=== PATIENT | female | born 1995 | race Caucasian/White ===

== ENCOUNTER 2016-12-22 07:28 | Emergency (ER) | payer OTHER ==
[~2016-12-22] VITALS: Ht 165.1 cm; Wt 81.7 kg
[~2016-12-22 07:28] MED LIST: ACETAMINOPHEN325 M1 PO; CEPHALEXIN500 MG PO; KEFLEX500 MG PO; MIRENA1 EACH; NORCO 5-325 TA1 EACH PO; [UNRECOGNIZED DRUG - OTHER]
--- OUTSIDE RECORDS SUMMARY | 2016-12-22 07:34 | XMS ---
Demographics + + + | Address | [address] | | | [place] [address] | + + + | Preferred Language | Unknown | + + + | Marital Status | Unknown | + + + | Mormon Affiliation | Unknown | + + + | Race | Unknown | + + + | Ethnic Group | Unknown | + + + Author + + + | Author | [facility] | + + + | Organization | [facility] | + + + | Address | [address] | | | [place] [address] | + + + | Phone | | + + + Care Team Providers + + + + | Care Stacking Machine Operator Name | Role | Phone | + + + + Unavailable | Unavailable | + + + + PROBLEMS +---------+ + + +--------+ + + | Type | Condition | ICD9-CM | [id number] | Onset | Condition | SNOMED | | | | Code | Code | Dates | Status | Code | +---------+ + + +--------+ + + | Problem | Anxiety | F41.9 | | | Active | 802116532 | | | disorder | | | | | | +---------+ + + +--------+ + + | Problem | Depression | | F41.8 | | Active | [id number] | | | with | | | | | | | | anxiety | | | | | | +---------+ + + +--------+ + + ALLERGIES Unknown Allergies SOCIAL HISTORY No smoking Hx information available PLAN OF CARE VITAL SIGNS MEDICATIONS Unknown Medications RESULTS No Results PROCEDURES No Known procedures IMMUNIZATIONS No Known Immunizations"
--- OUTSIDE RECORDS SUMMARY | 2016-12-22 07:34 | XMS ---
Demographics + + + | Address | [address] | | | [place] [address] | + + + | Preferred Language | Unknown | + + + | Marital Status | Unknown | + + + | Yarsani Affiliation | Unknown | + + + | Race | Unknown | + + + | Ethnic Group | Unknown | + + + Author + + + | Author | [facility] | + + + | Organization | [facility] | + + + | Address | [address] | | | [place] [address] | + + + | Phone | | + + + Care Team Providers + + + + | Care Seamstress Fitter Name | Role | Phone | + + + + Unavailable | Unavailable | + + + + PROBLEMS + + + + + + + + | Type | Condition | ICD9-CM | [id number] | Onset | Condition | SNOMED | | | | Code | Code | Dates | Status | Code | + + + + + + + + | Problem | Anxiety | F41.9 | | | Active | [id number] | | | disorder | | | | | | + + + + + + + + | Problem | Depression | | F41.8 | | Active | [id number] | | | with | | | | | | | | anxiety | | | | | | + + + + + + + + | Assessment | Bilateral | H66.93 | | 18 Apr, | Active | [id number] | | | otitis | | | 2016 | | | | | media | | | | | | + + + + + + + + | Assessment | Pharyngiti | | J02.9 | 18 Apr, | Active | [id number] | | | s | | | 2016 | | | + + + + + + + + ALLERGIES + + + + +--------+ | Substance | Reaction | Event Type | Date | Status | + + + + +--------+ | Bees | Unknown | Non Drug | 18 Aug, 2016 | Active | | | | Allergy | | | + + + + +--------+ SOCIAL HISTORY No smoking Hx information available PLAN OF CARE VITAL SIGNS + + + + | Height | 65 in | 2016-08-23 | + + + + | Weight | 212.9 lbs | 2016-08-23 | + + + + | BMI | 35.42 kg/m2 | 2016-08-23 | + + + + | Temperature | 98.0 degrees Fahrenheit | 2016-08-23 | + + + + | Heart Rate | 78 /min | 2016-08-23 | + + + + | Blood pressure systolic | 128 mm Hg | 2016-08-23 | + + + + | Blood pressure diastolic | 69 mm Hg | 2016-08-23 | + + + + MEDICATIONS + + + + + + + +--------+ | Medicati | Instruct | Dosage | Frequenc | Start | End Date | Duration | Status | | on | ions | | y | Date | | | | + + + + + + + +--------+ | Ibuprofe | Orally | 1 tablet | 8h | 18 Apr, | 28 Aug, | 10 | Active | | n 800 MG | Three | | | 2016 | 2016 | day(s) | | | | times a | | | | | | | | | day | | | | | | | + + + + + + + +--------+ | Amoxicil | Orally | 1 tablet | 12h | 18 Apr, | 28 Apr, | 10 | Active | | vito-Pot | every 12 | | | 2016 | 2016 | day(s) | | | Clavulan | hrs | | | | | | | | ate | | | | | | | | | 875-125 | | | | | | | | | MG | | | | | | | | + + + + + + + +--------+ RESULTS + +--------+------+ + | Name | Result | Date | Reference Range | + +--------+------+ + | Strep Gp A Rapid | | | | | (IH) | | | | + +--------+------+ + PROCEDURES + + + + + | Procedure | Date Ordered | Related Diagnosis | Body Site | + + + + + | Est Level III | August 23, 2016 | | | | Intermediate | | | | + + + + + | STREP A ASSAY | August 23, 2016 | | | | W/OPTIC | | | | + + + + + IMMUNIZATIONS No Known Immunizations"
--- OUTSIDE RECORDS SUMMARY | 2016-12-22 07:34 | XMS ---
Demographics + + + | Address | [address] | | | [place] [address] | + + + | Preferred Language | Unknown | + + + | Marital Status | Unknown | + + + | Jain Affiliation | Unknown | + + + | Race | Unknown | + + + | Ethnic Group | Unknown | + + + Author + + + | Author | [facility] | + + + | Organization | [facility] | + + + | Address | [address] | | | [place] [address] | + + + | Phone | | + + + Care Team Providers + + + + | Care Director Counseling Bureau Name | Role | Phone | + + + + Unavailable | Unavailable | + + + + PROBLEMS +---------+ + + +--------+ + + | Type | Condition | ICD9-CM | [id number] | Onset | Condition | SNOMED | | | | Code | Code | Dates | Status | Code | +---------+ + + +--------+ + + | Problem | Anxiety | F41.9 | | | Active | [id number] | | | disorder | | | | | | +---------+ + + +--------+ + + | Problem | Depression | | F41.8 | | Active | [id number] | | | with | | | | | | | | anxiety | | | | | | +---------+ + + +--------+ + + ALLERGIES Unknown Allergies SOCIAL HISTORY No smoking Hx information available PLAN OF CARE VITAL SIGNS MEDICATIONS Unknown Medications RESULTS No Results PROCEDURES No Known procedures IMMUNIZATIONS No Known Immunizations"
[2016-12-22] MEDS ORDERED: ZOFRAN ODT4 MG PO (10:28)
[2016-12-22] MEDS ORDERED: PERCOCET 5-3251 EACH PO (10:28)
[2016-12-22] MEDS ORDERED: PRILOSEC OTC20 MG PO (10:28)
== END 2016-12-22 10:41 | disposition home or self-care (01) ==
LOC: ED 07:28
DX: R10.13 Epigastric pain (principal); F17.200 Nicotine dependence, unspecified, uncomplicated
CPT/HCPCS: 76705; 80053; 81001; 83690; 84703; 85025; 96374; 96375; 99284; J1170; J2405

== ENCOUNTER 2021-08-06 11:05 | Emergency (ER) | payer OTHER ==
[~2021-08-06] VITALS: Ht 167.6 cm; Wt 99.8 kg
[~2021-08-06 11:05] MED LIST changes: +HYDROCODONE CO120 ML PO; +PERCOCET 5-3251 EACH PO; +PRILOSEC OTC20 MG PO; +ZOFRAN ODT4 MG PO
[2021-08-06] MEDS ORDERED: HYDROCODON-ACE1 EA11 PO (17:31)
== END 2021-08-06 17:54 | disposition home or self-care (01) ==
LOC: ED 11:05
DX: R10.2 Pelvic and perineal pain (principal); F17.200 Nicotine dependence, unspecified, uncomplicated; Z91.030 Bee allergy status
CPT/HCPCS: 36415; 76830; 76856; 81001; 84703; 85025; 96374; 96375; 96376; 99284-25; J1170; J1885; J7040

== ENCOUNTER 2024-03-03 05:41 | Emergency (ER) | payer OTHER ==
[~2024-03-03] VITALS: Ht 167.6 cm; Wt 87.3 kg
[~2024-03-03 05:41] MED LIST changes: +HYDROCODON-ACE1 EA11 PO
[2024-03-03 06:32] LABS: BASOPHILS 0.7 % (0-2); BILIRUBIN, URINE NEGATIVE (negative); BLOOD/HGB, URINE LARGE (Negative); HEMATOCRIT 43.6 % (35.0-50.0); HEMOGLOBIN 14.7 g/dL (12.0-18.0); KETONE, URINE NEGATIVE (Negative); LEUK ESTERASE, URINE NEGATIVE (negative); LYMPHOCYTES 20.2 % (24-44); MCH 30.5 (27-36); MCHC 33.6 g/dl (30-36); MCV 90.8 fl (81-99); NEUTROPHILS 71.1 % (39-80); NITRITE, URINE NEGATIVE (negative); PLATELET COUNT 220 K/uL (140-440); RBC 4.81 M/ul (4.3-5.7)
[2024-03-03 06:43] LABS: PARTIAL THROMBOPLASTIN TIME 25.6 Sec (22.9-41.3)
[2024-03-03 06:44] LABS: CRYSTALS, URINE NONE SEEN (0-1+); EPITHELIAL CELLS, URINE SQUAMOUS 1+ /lpf (0-1+); INR 0.97 (0.80-1.30); PROTIME 12.2 Sec (11.2-14.2); RED BLOOD CELLS, URINE >50 /hpf (0-5); WHITE BLOOD CELLS, URINE 0-1 /HPF (0-5)
[2024-03-03 06:45] LABS: BACTERIA, URINE RARE /hpf (negative); CASTS, URINE NONE SEEN \\lpf; COLLECTION TYPE, URINE CLEAN CATCH; REFLEX CULTURE, URINE No (No)
[2024-03-03 06:47] LABS: ALBUMIN 3.7 g/dL (3.4-5.0); ALBUMIN/GLOBULIN RATIO 1.23 (1.1-2.4); ANION GAP 12.7 (7-21); BILIRUBIN, TOTAL 0.6 ng/dL (0.2-1.0); BUN/CREATININE RATIO 14.81 (6.0-28.6); CREATININE, SERUM 0.54 mg/dL (0.55-1.02); MAGNESIUM 1.9 mg/dL (1.8-2.4); POTASSIUM 3.7 mmol/L (3.5-5.1); PROTEIN, TOTAL 6.7 g/dL (6.4-8.2)
[2024-03-03 06:53] LABS: ABO O; RH POSITIVE
[2024-03-03 08:03] VITALS: BP 114/72
== END 2024-03-03 08:03 | disposition home or self-care (01) ==
LOC: ED 05:41
PROVIDERS: Internal Medicine
DX: O20.9 Hemorrhage in early pregnancy, unspecified (principal); O99.331 Smoking (tobacco) complicating pregnancy, first trimester; F17.200 Nicotine dependence, unspecified, uncomplicated; Z3A.01 Less than 8 weeks gestation of pregnancy; Z91.030 Bee allergy status
CPT/HCPCS: 36415; 76801; 80053; 81001; 83735; 84702; 85025; 85610; 85730; 86900; 86901; 99284-25

== ENCOUNTER 2024-09-22 09:11 | Inpatient (IN) | payer OTHER ==
[2024-09-22] MEDS ORDERED: LOPERAMIDE HCL 2 MG CAP PO ONE (09:45)
[2024-09-22 10:09] LABS: HEMATOCRIT 38.8 % (35.0-50.0); HEMOGLOBIN 13.6 g/dL (12.0-18.0); MCH 30.7 (27-36); MCHC 35.1 g/dl (30-36); MCV 87.6 fl (81-99); RBC 4.43 M/ul (4.3-5.7)
[2024-09-22 10:21] LABS: CREATININE, SERUM 0.69 mg/dL (0.55-1.02)
[2024-09-22 10:27] LABS: CREATININE, RANDOM URINE 249.69 mg/dL (NOT ESTABLISHED); PROTEIN/CREATININE RATIO 0.16 mg/mg (0.010-0.107)
[2024-09-22] MEDS ORDERED: TERBUTALINE SULFATE 1 MG/ML AMP SUB-Q ONE (10:45)
[2024-09-22] MEDS ORDERED: LACTATED RINGER'S 1,000 ML IV SCH ×4 (10:45→13:45)
[2024-09-22] MEDS ORDERED: MAGNESIUM SULFATE 2 GM/50 ML BAG IV SCH (11:15)
[2024-09-22] MEDS ORDERED: CALCIUM GLUCONATE 1,000 MG/10 ML VIAL IV PRN ×2 (11:15→13:45)
[2024-09-22] MEDS ORDERED: MAGNESIUM SULFATE 500 ML IV SCH ×2 (11:15→13:45)
[2024-09-22 11:24] LABS: ALBUMIN 2.8 g/dL (3.4-5.0); ALBUMIN/GLOBULIN RATIO 0.88 (1.1-2.4); ANION GAP 14.8 (7-21); BILIRUBIN, TOTAL 0.6 mg/dL (0.2-1.0); BUN/CREATININE RATIO 17.39 (6.0-28.6); CALCIUM 8.4 mg/dL (8.5-10.1); CREATININE, SERUM 0.69 mg/dL (0.55-1.02); POTASSIUM 3.8 mmol/L (3.5-5.1)
[2024-09-22] MEDS ORDERED: CEFAZOLIN SODIUM 2 GM/20 ML SYR IV SCH (11:38)
[2024-09-22] MEDS ORDERED: ondansetron HCL 4 MG/2 ML VIAL ONE (11:40)
[2024-09-22] MEDS ORDERED: MORPHINE SULFATE 1 MG/ML VIAL ONE (11:40)
[2024-09-22] MEDS ORDERED: fentaNYL citrate 100 MCG/2 ML VIAL ONE (11:40)
[2024-09-22] MEDS ORDERED: OXYTOCIN 10 UNITS/ML VIAL ONE ×2 (11:40→13:23)
[2024-09-22] MEDS ORDERED: DEXAMETHASONE SOD PHOS 4 MG/ML VIAL ONE (11:40)
[2024-09-22] MEDS ORDERED: BUPIVACAINE 0.75% IN DEXTROSE 2 ML AMP ONE (11:40)
[2024-09-22] MEDS ORDERED: LIDOCAINE HCL 2% 5 ML SDV ONE (11:40)
[2024-09-22] MEDS ORDERED: hydrALAZINE HCL 20 MG/ML VIAL IV PRN (11:45)
[2024-09-22] MEDS ORDERED: LABETALOL HCL 100 MG/20 ML MDV IV PRN ×3 (11:45)
[2024-09-22] MEDS ORDERED: SOD+POT BICARB/CITRIC ACID 2 EA TABLET.EFF PO ONE (11:45)
[2024-09-22 11:58] LABS: AMPHETAMINES, URINE NEGATIVE (NEGATIVE); BARBITURATES, URINE NEGATIVE (NEGATIVE); BENZODIAZEPINE, URINE NEGATIVE (NEGATIVE); BUPRENORPHINE, URINE NEGATIVE (NEGATIVE); CANNABINOID, URINE NEGATIVE (NEGATIVE); COCAINE, URINE NEGATIVE (NEGATIVE); ECSTASY, URINE NEGATIVE (NEGATIVE); FENTANYL, URINE NEGATIVE (NEGATIVE); METHADONE, URINE NEGATIVE (NEGATIVE); OPIATES, URINE NEGATIVE (NEGATIVE); OXYCODONE, URINE NEGATIVE (NEGATIVE); PHENCYCLIDINE, URINE NEGATIVE (NEGATIVE)
[2024-09-22] MEDS ORDERED: PHENYLEPHRINE HCL 10 MG/ML VIAL ONE (12:15)
[2024-09-22 12:19] VITALS: BP 147/84
[2024-09-22] MEDS ORDERED: SODIUM CHLORIDE 0.9% 20 ML IV ONE (12:39)
[2024-09-22] MEDS ORDERED: Ropivacaine HCl 0.5% 30 ML VIAL ONE (12:39)
[2024-09-22] MEDS ORDERED: ACETAMINOPHEN 1,000 MG/100 ML VIAL ONE (12:44)
[2024-09-22] MEDS ORDERED: NALOXONE HCL 0.4 MG SYR IV PRN (13:00)
[2024-09-22] MEDS ORDERED: diphenhydrAMINE HCL 50 MG/ML VIAL IV PRN (13:00)
[2024-09-22] MEDS ORDERED: ondansetron HCL 4 MG/2 ML VIAL IV PRN ×2 (13:00→13:15)
[2024-09-22] MEDS ORDERED: HYDROmorphone HCL 1 MG/ML SYR IV PRN (13:00)
[2024-09-22] MEDS ORDERED: PROCHLORPERAZINE EDISYLATE 10 MG/2 ML VIAL IV PRN ×2 (13:00→13:15)
[2024-09-22] MEDS ORDERED: METOCLOPRAMIDE HCL 10 MG/2 ML SDV IV PRN (13:15)
[2024-09-22] MEDS ORDERED: PROMETHAZINE HCL 25 MG SUPP PR PRN (13:15)
[2024-09-22] MEDS ORDERED: OXYCODONE HCL 5 MG TAB PO PRN (13:15)
[2024-09-22] MEDS ORDERED: OXYTOCIN/0.9 % SODIUM CHLORIDE 500 ML IV SCH (13:15)
[2024-09-22] MEDS ORDERED: bisacodyL 10 MG SUPP PR PRN (13:15)
[2024-09-22] MEDS ORDERED: HYDROCODONE/ACETA 5/325 TAB PO PRN (13:15)
[2024-09-22] MEDS ORDERED: PROMETHAZINE HCL 25 MG TAB PO PRN (13:15)
[2024-09-22] MEDS ORDERED: SENNOSIDES/DOCUSATE 1 EA TAB PO SCH (13:18)
[2024-09-22] MEDS ORDERED: miSOPROStoL 200 MCG TAB PR ONE (13:45)
[2024-09-22 13:48] VITALS: BP 117/73
[2024-09-22] MEDS ORDERED: ACETAMINOPHEN 500 MG TAB PO SCH (14:00)
--- NOTE | 2024-09-22 14:08 | NUR ---
09/22/24 1408 Jackie Chung 1318-PT ARRIES TO ROOM 104 ON RA. RESP EVEN AND UNLABORED. DENIES PAIN AND NAUSEA. IV LEFT ARM, INFUSING LR WITH PIT, SITE WNL. 1325-PT AWAKE. RESP EVEN AND UNLABORED. PT HOLDING BABY. FAMILY IN ROOM. 1335-PT HOLDING BABY. RESP EVEN AND UNLABOED. DENIES PAIN AND NAUSEA. HOB ELEVATED. 1344-PT HOLDING BABY. RESP EVEN AND UNLABORED. PT TAKING SIPS OF WATER. HOB ELEVATED. DENIES PAIN AND NAUSEA. 1348-LAST FUNDAL CHECK DONE WITH [facility] RN. 1354-PT HOLDING BABY. REPOERT GIVEN TO [facility] RN. NO OTHER NEEDS AT THIS TIME.
[2024-09-22] MEDS ORDERED: SIMETHICONE 80 MG CHEW PO SCH (16:00)
[2024-09-23] MEDS ORDERED: IBUPROFEN 600 MG TAB PO SCH (02:00)
[2024-09-23] MEDS ORDERED: LACTATED RINGER'S 1,000 ML IV SCH (05:00)
[2024-09-23 05:55] LABS: BASOPHILS 0.1 % (0-2); EOSINOPHILS 0.1 % (0-6); HEMATOCRIT 37.2 % (35.0-50.0); HEMOGLOBIN 12.9 g/dL (12.0-18.0); LYMPHOCYTES 7.5 % (24-44); MCH 30.5 (27-36); MCHC 34.6 g/dl (30-36); MCV 88.1 fl (81-99); NEUTROPHILS 86.3 % (39-80); PLATELET COUNT 104 K/uL (140-440); RBC 4.23 M/ul (4.3-5.7); RDW 13.1 (10.5-15.0)
[2024-09-23 06:10] LABS: ALBUMIN 2.5 g/dL (3.4-5.0); ALBUMIN/GLOBULIN RATIO 0.76 (1.1-2.4); ANION GAP 11.1 (7-21); BILIRUBIN, TOTAL 0.3 mg/dL (0.2-1.0); BUN/CREATININE RATIO 11.53 (6.0-28.6); CALCIUM 7.5 mg/dL (8.5-10.1); CREATININE, SERUM 0.78 mg/dL (0.55-1.02); POTASSIUM 4.1 mmol/L (3.5-5.1); PROTEIN, TOTAL 5.8 g/dL (6.4-8.2)
--- NOTE | 2024-09-23 08:23 | OR ---
[address] [address] Signed DATE OF OPERATION: 09/22/2024 SURGEON: Marcellus Stark MD PREOPERATIVE DIAGNOSES: 1. Intrauterine at 36 and 2/7th weeks. 2. Preeclampsia with severe features. 3. Remote from delivery. POSTOPERATIVE DIAGNOSES: 1. Intrauterine at 36 and 2/7th weeks. 2. Preeclampsia with severe features. 3. Remote from delivery. PROCEDURE: Primary low transverse section. FINDINGS: Vigorous male in vertex presentation. Apgars of 8 and 9, weight of 5 pounds 10 ounces, clear amniotic fluid, normal uterus, tubes, and ovaries. ANESTHESIA: Spinal. CORK MOLDER: None. QBL: 623 mL. IV FLUIDS: 700 mL of crystalloid. URINE OUTPUT: 400 mL of clear urine. DRAINS: Jolley to gravity. SPECIMENS: Electronically Signed By: MARCELLUS STARK MD 09/23/24 0823 PATIENT NAME: REJI OCONNOR OPERATIVE REPORT DATE OF : 89 REPORT #: [id number] PHYSICIAN: MARCELLUS STARK MD PCP: NO PRIMARY CARE PHYSICIAN REPORT IS CONFIDENTIAL AND NOT TO BE RELEASED WITHOUT AUTHORIZATION [address] [address] Signed None. COUNTS: Correct x2. COMPLICATIONS: None apparent. TECHNIQUE IN DETAIL: With informed consent, the patient was taken to the operating room where a spinal anesthetic was placed. She was prepped and draped in sterile fashion and time out was performed per protocol. Lower extremities were placed in SCD pneumatic compression devices. She was given 2 g of Ancef per protocol before the start of the procedure as well. Under adequate spinal analgesia, an approximately 7-inch Pfannenstiel skin incision was made and sharp dissection was carried down to the layer of the rectus fascia, which was nicked in the midline. This jeremiah in the fascia was enlarged bilaterally using sharp dissection. The rectus muscles were then taken down from the fascia using a combination of sharp and blunt dissection, though superiorly and inferiorly. The rectus muscles were in the midline at the most superior aspect and the separation was carried out inferiorly using a combination of blunt and sharp dissection. The peritoneum was entered sharply after grasping with hemostats and elevating. Careful attention was paid to lateral structures below. Once the peritoneum was reached, it was enlarged using a combination of sharp and blunt dissection. A bladder blade was then placed. A low transverse uterine incision was made using a scalpel. The remaining thin layer of the endometrium was punctured with the surgeon's finger and the uterine incision was enlarged with blunt dissection in an superior to inferior direction. The surgeon's hand was then placed into the lower uterine segment. head was elevated and delivered with fundal pressure. There was no nuchal cord. The shoulders delivered easily with fundal pressure. We delivered the baby. The cord was clamped after approximately 10 seconds and cut. The baby was handed to the transition team. The placenta delivered intact with a 3-vessel cord using gentle traction and fundal massage. Good uterine tone was achieved with intravenous oxytocin and fundal massage. The uterus was gently externalized and uterine cavity was curetted with laparotomy sponges. Uterine incision was then closed using an 0 Monocryl in a running locked fashion. A second imbricating layer was also placed with 0 Monocryl in a running fashion. The hysterotomy site was noted to be hemostatic. Posterior cul-de-sac was then cleared of all blood and clots. The adnexa were examined with the above-mentioned findings. The hysterectomy site was again inspected and noted to be hemostatic. The Electronically Signed By: MARCELLUS STARK MD 09/23/24 0823 PATIENT NAME: REJI OCONNOR OPERATIVE REPORT DATE OF : [birth year] REPORT #: [id number] PHYSICIAN: MARCELLUS STARK MD PCP: NO PRIMARY CARE PHYSICIAN REPORT IS CONFIDENTIAL AND NOT TO BE RELEASED WITHOUT AUTHORIZATION [facility] [address], [place] [address] Signed uterus was gently returned to the pelvis. Left and right paracolic gutters were cleared of all blood clot. The uterine incision was inspected one final time and again noted to be hemostatic. The rectus muscles and peritoneum were then reapproximated with 2-0 chromic in a running fashion. The rectus muscle bellies were inspected and found to be hemostatic. The rectus fascia was then closed using 0 Vicryl in a running fashion. The superficial incision was irrigated with sterile saline and rendered hemostatic with a Bovie device. The subcutaneous tissue was reapproximated with 2-0 chromic in a running fashion. The skin was reapproximated with the Insorb staple device. Steri-Strips and bandage were placed over the incision. The uterus was expressed of all clots. DISPOSITION: The patient and baby were taken to the recovery room in stable condition. MD OSMAR Montilla/MODL /[id number] Copies: ~ Electronically Signed By: MARCELLUS STARK MD 09/23/24 0823 PATIENT NAME: REJI OCONNOR OPERATIVE REPORT DATE OF : [birth year] REPORT #: [id number] PHYSICIAN: MARCELLUS STARK MD PCP: NO PRIMARY CARE PHYSICIAN REPORT IS CONFIDENTIAL AND NOT TO BE RELEASED WITHOUT AUTHORIZATION
[2024-09-24] MEDS ORDERED: MEASLES,MUMPS&RUBELLA VACCINE 1 VIAL VIAL SUB-Q ONE (17:30)
== END 2024-09-25 11:30 | disposition home or self-care (01) | DRG 788 ==
LOC: FBCO 09:11 → FBC 11:00
PROVIDERS: ADMIT Obstetrics & Gynecology; ATTEND Obstetrics & Gynecology
PROC: 10D00Z1 Extraction of Products of Conception, Low, Open Approach (ICD-10-PCS; principal; 2024-09-22 12:05)
PROC: 10907ZC Drainage of Amniotic Fluid, Therapeutic from Products of Conception, Via Natural or Artificial Opening (ICD-10-PCS; principal; 2024-09-22 12:05)
DX: O14.14 Severe pre-eclampsia complicating childbirth (principal); Z3A.36 36 weeks gestation of pregnancy; Z37.0 Single live birth; O99.344 Other mental disorders complicating childbirth; F41.9 Anxiety disorder, unspecified; F32.A Depression, unspecified; Z87.891 Personal history of nicotine dependence; Z91.030 Bee allergy status
CPT/HCPCS: 01961; 36415; 80053; 80307; 82565; 82570; 84156; 84450; 84520; 84550; 85025; 85027; A9270; G0463; J0131; J0690; J1100; J2003; J2274; J2371; J2405; J2590; J2795; J3010; J3105; J3475; J7121